=== PATIENT | male | born 1970 | race African-American/Black ===

== ENCOUNTER 2018-07-12 08:47 | Inpatient (IN) | payer MEDICAID ==
[~2018-07-12] VITALS: Ht 170.2 cm; Wt 76.5 kg
[~2018-07-12 08:47] MED LIST: AMOX-277; CARI350T22; HYDR-2595; LISI-646; PROMETHAZINE-CODEINE SYRUP; SIMV-8
[2018-07-12] MEDS ORDERED: SODIUM CHLORIDE 0.9% 1,000 ML IV ONE ×2 (09:24)
[2018-07-12] MEDS ORDERED: IOHEXOL 300 MG/ML 100ML BOTTLE IJ ONE (09:53)
[2018-07-12 10:41] LABS: Urine Bacteria FEW /hpf (None Seen); Urine Blood 2+ /uL (Negative); Urine Specific Gravity 1.002 (1.001-1.035); Urine WBC 2 /hpf (0 - 3)
[2018-07-12 10:50] LABS: Eosinophils # (auto) 0.1 uL; Monocytes # (auto) 0.9 uL; Nucleated Red Blood Cells % 0.2 %; Red Blood Cells 5.62 10^6/uL (4.5-5.90)
[2018-07-12 10:52] LABS: Basophils # (auto) 0.1 uL; Basophils % (auto) 0.4 % (0.0-2.0); Eosinophils % (auto) 0.7 % (0.0-7.0); Hematocrit 42.2 % (41.0-53.0); Hemoglobin 14.1 g/dL (13.5-17.5); Lymphocytes # (auto) 4.8 uL; Lymphocytes % (auto) 28.7 % (10.0-50.0); Mean Corpuscular Hemoglobin 25.1 pg (28.0-32.0); Mean Corpuscular Hgb Conc. 33.4 g/dL (32.0-36.0); Mean Corpuscular Volume 75.1 fL (80.0-100.0); Monocytes % (auto) 5.3 % (0.0-12.0); Neutrophils % (auto) 64.9 % (37.0-80.0); Platelet Count (auto) 421 10^3/uL (140-450); White Blood Cell 16.9 10^3/uL (4.4-10.8)
[2018-07-12 11:05] LABS: Red Cell Distribution Width 32.3 % (11.8-14.3)
[2018-07-12 11:08] LABS: Albumin 3.6 g/dL (3.4-5.0); Calcium 8.6 mg/dL (8.5-10.1)
[2018-07-12 11:14] LABS: Potassium 1.9 mmol/L (3.5-5.1)
[2018-07-12 11:15] LABS: Bilirubin, Total 1.9 mg/dL (0.2-1.0); Total Protein 8.5 g/dL (6.4-8.2)
[2018-07-12 11:21] LABS: INR 1.16 (0.9-1.15); Partial Thromboplastin Time 24.3 sec (23.78-33.04); Prothrombin Time 12.3 sec (9.27-12.13)
[2018-07-12] MEDS ORDERED: POTASSIUM CHL 20MEQ/100ML 100 ML IV SCH (11:45)
[2018-07-12] MEDS ORDERED: POTASSIUM EFFERVESENT TAB 25 MEQ PO ONE (11:45)
[2018-07-12] MEDS ORDERED: POTASSIUM CHLORIDE 20 MEQ, LIDOCAINE 1% (LOCAL ANESTH.) 2 ML in SODIUM CHL 0.9% 100 ML IV ONE (12:00)
[2018-07-12 13:22] LABS: Albumin 3.2 g/dL (3.4-5.0); BUN/Creatinine Ratio 4.3; Calcium 8.2 mg/dL (8.5-10.1)
[2018-07-12 13:26] LABS: Bilirubin, Total 1.9 mg/dL (0.2-1.0); Total Protein 7.7 g/dL (6.4-8.2)
[2018-07-12 13:41] LABS: Potassium 1.8 mmol/L (3.5-5.1)
[2018-07-12] MEDS ORDERED: LEVOFLOXACIN 500MG 100 ML IV ONE (13:45)
[2018-07-12] MEDS ORDERED: PANTOPRAZOLE 40 MG/10 ML VIAL IV ONE (13:45)
[2018-07-12] MEDS ORDERED: POTASSIUM CHL 20 Meq TABLET PO ONE ×2 (13:45→21:00)
[2018-07-12] MEDS ORDERED: NITROGLYCERIN 0.4 MG SL TAB SL PRN (13:45)
[2018-07-12 14:15] LABS: Magnesium 1.9 mg/dL (1.6-2.6)
[2018-07-12] MEDS: SOD CHL 0.45% WITH 20MEQ KCL 1,000 ML IV SCH (14:25)
[2018-07-12] MEDS: HYDROcodone-ACET 5/325MG TAB PO PRN (14:25)
[2018-07-12 14:35] LABS: Lactic Acid w/Reflex 3.2 mmol/L (0.4-2.0)
[2018-07-12] MEDS: metroNIDAZOLE 500MG/100ML 100 ML IV SCH ×2 (14:40→22:05)
[2018-07-12] MEDS: MORPHINE SULFATE 4 MG/ML SYR/VIAL IV PRN ×2 (15:32→21:18)
[2018-07-12] MEDS: ONDANSETRON HCL 4 MG/2 ML VIAL IV PRN (15:33)
[2018-07-12] MEDS: POTASSIUM CHL 20MEQ/100ML 100 ML IV SCH ×2 (21:00→23:00)
[2018-07-13] VITALS (7 sets, daily range): BP systolic 119–128; BP diastolic 73–80
[2018-07-13] MEDS: SOD CHL 0.45% WITH 20MEQ KCL 1,000 ML IV SCH ×2 (00:11→10:47)
[2018-07-13] MEDS: MORPHINE SULFATE 4 MG/ML SYR/VIAL IV PRN ×5 (01:19→20:57)
--- NOTE | 2018-07-13 02:00 | NUR ---
Telemetry admit from [facility] admitted to Telemetry unit after SBAR received. Patient oriented to Suze Guerra, primary RN, unit, room, bed, and unit policies regarding patient care and visiting hours. Patient now on continuous telemetry monitoring, tele box # [id number] and telemetry reading on arrival to unit is . Patient placed on bedside oxygen, weighed by bedscale and encouraged to call if they need something. All questions and concerns addressed, patient verbalized understanding. Note:
[2018-07-13] MEDS: metroNIDAZOLE 500MG/100ML 100 ML IV SCH ×3 (05:30→22:35)
--- NOTE | 2018-07-13 07:10 | NUR ---
OPENING SHIFT NOTE ASSUMED CARE OF PATIENT FROM TEST DESIGN ENGINEER EDILIA LUI. PATIENT IS AWAKE AND ALERT X4. PATIENT HAS NO S/S OF DISTRESS/SOB OR PAIN. INSTRUCTED PATIENT ON POC, PATIENT VERBALIZED UNDERSTANDING. BED IS IN LOWEST POSITION WITH SIDE RAILS RAISED X2, BED WHEELS LOCKED, AND CALL LIGHT WITHIN REACH. WILL CONTINUE TO MONITOR.
[2018-07-13 07:38] LABS: Eosinophils # (auto) 0.1 uL; Eosinophils % (auto) 0.6 % (0.0-7.0)
[2018-07-13 07:39] LABS: Basophils # (auto) 0 uL; Basophils % (auto) 0.2 % (0.0-2.0); Hematocrit 34.2 % (41.0-53.0); Hemoglobin 12.1 g/dL (13.5-17.5); Lymphocytes # (auto) 6.2 uL; Lymphocytes % (auto) 35.9 % (10.0-50.0); Mean Corpuscular Hemoglobin 26.6 pg (28.0-32.0); Mean Corpuscular Hgb Conc. 35.4 g/dL (32.0-36.0); Mean Corpuscular Volume 75.1 fL (80.0-100.0); Monocytes % (auto) 5.9 % (0.0-12.0); Neutrophils # (auto) 9.9 uL; Neutrophils % (auto) 57.4 % (37.0-80.0); Nucleated Red Blood Cells % 0.3 %; Platelet Count (auto) 396 10^3/uL (140-450); Red Blood Cells 4.56 10^6/uL (4.5-5.90); White Blood Cell 17.3 10^3/uL (4.4-10.8)
[2018-07-13 07:44] LABS: Albumin 2.8 g/dL (3.4-5.0); BUN/Creatinine Ratio 4.7; Bilirubin, Total 1.4 mg/dL (0.2-1.0); Calcium 7.9 mg/dL (8.5-10.1); Magnesium 1.7 mg/dL (1.6-2.6); Total Protein 6.5 g/dL (6.4-8.2)
[2018-07-13 07:46] LABS: Potassium 2.1 mmol/L (3.5-5.1)
[2018-07-13 07:47] LABS: Red Cell Distribution Width 31.3 % (11.8-14.3)
[2018-07-13] MEDS ORDERED: POTASSIUM CHL 20 Meq TABLET PO ONE (08:00)
[2018-07-13] MEDS: ONDANSETRON HCL 4 MG/2 ML VIAL IV PRN (08:23)
[2018-07-13] MEDS: ASPirin 81 mg TAB PO SCH (10:45)
[2018-07-13] MEDS: LEVOFLOXACIN 500MG 100 ML IV SCH (10:45)
[2018-07-13] MEDS: PANTOPRAZOLE 40 MG/10 ML VIAL IV SCH (10:46)
--- NOTE | 2018-07-13 11:26 | NUR ---
MD WORKMAN AT BEDSIDE. UPDATED M DON PATIENT'S STATUS, INCLUDING POTASSIUM OF 2.1, MD IS AWARE AND WILL PUT IN NEW ORDERS. WILL FOLLOW THROUGH WITH ORDERS.
[2018-07-13] MEDS ORDERED: POTASSIUM CHLORIDE 80 MEQ, LIDOCAINE 1% (LOCAL ANESTH.) 6 ML in SODIUM CHL 0.9% 500 ML IV ONE (11:30)
[2018-07-13] MEDS: SODIUM BICARBONATE 50ML VIAL 50 ML in SOD CHL 0.45% 1,000 ML IV SCH (12:20)
[2018-07-13 12:28] LABS: Albumin 2.7 g/dL (3.4-5.0); Calcium 7.9 mg/dL (8.5-10.1)
[2018-07-13 12:31] LABS: BUN/Creatinine Ratio 4.3; Bilirubin, Total 1.5 mg/dL (0.2-1.0); Total Protein 6.4 g/dL (6.4-8.2)
[2018-07-13 12:39] LABS: Potassium 2.1 mmol/L (3.5-5.1)
[2018-07-13] MEDS: Ensure Enlive Strawberry 8oz Bottle PO SCH ×2 (13:51→17:44)
[2018-07-13] MEDS: MAGNESIUM SULFATE 1GM/100ML 100 ML IV SCH ×2 (14:17→15:54)
--- NOTE | 2018-07-13 18:48 | NUR ---
STOOL SAMPLE SENT TO LAB
--- NOTE | 2018-07-13 19:20 | NUR ---
CLOSING SHIFT NOTE ENDORSED CARE TO POLITICAL SCIENCE RESEARCH ASSISTANT RN ISRRAEL. PATIENT HAS NO S/S OF DISTRESS/SOB OR PAIN AT THIS TIME.
--- NOTE | 2018-07-13 20:00 | NUR ---
IV removal IV in the L AC is leaking .IV dc'd with sterile technique, catheter fully intact. Pressure dressing applied to site. Patient tolerated procedure well.
--- NOTE | 2018-07-13 20:30 | NUR ---
IV insertion 2nd IV access obtained, via clean sterile technique by inserting 22 gauge catheter at L forearm after 1 attempt(s). IV secured properly. No trauma to site. Patient tolerated well.
[2018-07-14] MEDS ORDERED: diphenhdrAMINE HCL 25 MG CAP PO ONE (00:30)
[2018-07-14] MEDS: MORPHINE SULFATE 4 MG/ML SYR/VIAL IV PRN ×5 (01:21→19:07)
[2018-07-14] MEDS: SODIUM BICARBONATE 50ML VIAL 50 ML in SOD CHL 0.45% 1,000 ML IV SCH ×2 (01:46→09:18)
--- NOTE | 2018-07-14 04:00 | NUR ---
monitor and storage bin tender tech called that patient's HR is 140. At this time patient up to the bathroom and had BM. Patient not c/o chest discomfort . Patient ambulated back to his bed with no discomfort presented.
[2018-07-14 05:30] VITALS: BP 125/72
[2018-07-14] MEDS: metroNIDAZOLE 500MG/100ML 100 ML IV SCH (05:36)
[2018-07-14 05:53] VITALS: BP 125/95
[2018-07-14 06:46] LABS: Eosinophils # (auto) 0.1 uL; Hemoglobin 11.1 g/dL (13.5-17.5); Neutrophils # (auto) 8.6 uL
[2018-07-14 06:48] LABS: Basophils # (auto) 0.1 uL; Basophils % (auto) 0.3 % (0.0-2.0); Eosinophils % (auto) 0.5 % (0.0-7.0); Hematocrit 30.8 % (41.0-53.0); Lymphocytes # (auto) 5.4 uL; Lymphocytes % (auto) 35.8 % (10.0-50.0); Mean Corpuscular Hemoglobin 27.3 pg (28.0-32.0); Mean Corpuscular Hgb Conc. 35.9 g/dL (32.0-36.0); Mean Corpuscular Volume 76.1 fL (80.0-100.0); Monocytes % (auto) 6.8 % (0.0-12.0); Neutrophils % (auto) 56.6 % (37.0-80.0); Nucleated Red Blood Cells % 0.3 %; Platelet Count (auto) 424 10^3/uL (140-450); Red Blood Cells 4.06 10^6/uL (4.5-5.90); White Blood Cell 15.2 10^3/uL (4.4-10.8)
[2018-07-14 07:13] LABS: Albumin 2.7 g/dL (3.4-5.0); BUN/Creatinine Ratio 3.9; Calcium 7.3 mg/dL (8.5-10.1)
[2018-07-14 07:14] LABS: Red Cell Distribution Width 31.7 % (11.8-14.3)
[2018-07-14 07:27] LABS: Bilirubin, Total 0.9 mg/dL (0.2-1.0); Total Protein 6.6 g/dL (6.4-8.2)
--- NOTE | 2018-07-14 07:30 | NUR ---
OPENING NOTE The patient is received alert and oriented times four with no SOB or s/s of distress at this time. The patient is resting in bed in the lowest position with call light within reach, will continue to monitor and POC.
[2018-07-14 07:44] LABS: Potassium 2.3 mmol/L (3.5-5.1)
--- NOTE | 2018-07-14 08:35 | NUR ---
CRITICAL LAB Lab calls and states that the patient's potassium is 2.3 and the on-call hospitalist is paged. The on-call hospitalist calls back and is updated on the patient's status. The hospitalist places orders via telephone with read back.
[2018-07-14] MEDS ORDERED: POTASSIUM CHL 20 Meq TABLET PO ONE ×2 (09:00→11:30)
[2018-07-14] MEDS ORDERED: POTASSIUM CHLORIDE 40 MEQ, LIDOCAINE 1% (LOCAL ANESTH.) 4 ML in SODIUM CHL 0.9% 100 ML IV ONE (09:00)
--- NOTE | 2018-07-14 09:00 | NUR ---
IV removal IV DC'd with sterile technique, catheter fully intact. Pressure dressing applied to site. Patient tolerated procedure well.
[2018-07-14] MEDS: Ensure Enlive Strawberry 8oz Bottle PO SCH ×3 (09:18→18:29)
[2018-07-14 09:22] VITALS: BP 136/81
[2018-07-14] MEDS: LEVOFLOXACIN 500MG 100 ML IV SCH (09:38)
[2018-07-14] MEDS: ASPirin 81 mg TAB PO SCH (09:39)
[2018-07-14] MEDS: PANTOPRAZOLE 40 MG/10 ML VIAL IV SCH (09:39)
--- NOTE | 2018-07-14 11:15 | NUR ---
HOSPITALIST BEDSIDE Dr. Knox is bedside and updates the patient on the POC.
[2018-07-14] MEDS: D5W/SOD CHL 0.45%/KCL 40MEQ 1,000 ML IV SCH (11:30)
[2018-07-14] MEDS: diphenhdrAMINE HCL 50 MG/1 ML VL IV PRN ×2 (13:00→20:20)
[2018-07-14 13:12] VITALS: BP 115/74
--- NOTE | 2018-07-14 13:30 | NUR ---
IV insertion IV access obtained, via clean sterile technique by inserting 20 gauge catheter at the right AC after one attempt(s). IV secured properly. No trauma to site. Patient tolerated procedure well.
[2018-07-14] MEDS: metroNIDAZOLE 500 MG TAB PO SCH ×2 (14:15→21:55)
--- NOTE | 2018-07-14 16:30 | NUR ---
Rounds Patient awake and alert. No S/S of distress/SOB or pain. Will continue to monitor changes q1hr and PRN.
[2018-07-14 17:36] VITALS: BP 127/78
--- NOTE | 2018-07-14 19:50 | NUR ---
OPENING NOTES RECEIVED REPORT FROM DAY SHIFT NURSE. PT IS AWAKE AND ALERT X 4 WITH NO S/S OF DISTRESS BUT HAS PAIN 8/10. BED IS IN LOWEST POSITION WITH BRAKES LOCKED AND SIDE RAILS UP X 2. CALL LIGHT IS WITH IN REACH. ADDRESSED POC WITH PT. WILL MONITOR Q 1 HR.
[2018-07-14] MEDS: HYDROcodone-ACET 5/325MG TAB PO PRN (20:26)
[2018-07-14 20:44] VITALS: BP 125/70
[2018-07-15] MEDS: MORPHINE SULFATE 4 MG/ML SYR/VIAL IV PRN ×5 (00:38→22:18)
--- NOTE | 2018-07-15 01:20 | NUR ---
IV FLUIDS D5W .45 NACL 40MEQ KCL NOT FINISHED INFUSING. WILL DELAY SCHEDULED D5W .45 NACL 40MEQ KCL AT 0050 TILL CURRENT D5W .45NACL 40 MEQ KCL IS COMPLETED.
[2018-07-15] MEDS: diphenhdrAMINE HCL 50 MG/1 ML VL IV PRN ×3 (03:43→17:50)
[2018-07-15 05:00] VITALS: BP 128/69
[2018-07-15 05:55] LABS: Basophils # (auto) 0.1 uL; Basophils % (auto) 0.5 % (0.0-2.0); Eosinophils # (auto) 0.1 uL; Eosinophils % (auto) 0.9 % (0.0-7.0); Lymphocytes # (auto) 6.4 uL; Mean Corpuscular Hemoglobin 25.1 pg (28.0-32.0); Mean Corpuscular Hgb Conc. 32.5 g/dL (32.0-36.0); Mean Corpuscular Volume 77.4 fL (80.0-100.0); Monocytes % (auto) 6.3 % (0.0-12.0); Neutrophils # (auto) 7.6 uL; Neutrophils % (auto) 50.3 % (37.0-80.0); Nucleated Red Blood Cells % 0.3 %; Platelet Count (auto) 323 10^3/uL (140-450); Red Blood Cells 4.39 10^6/uL (4.5-5.90); White Blood Cell 15.1 10^3/uL (4.4-10.8)
[2018-07-15 06:03] LABS: Red Cell Distribution Width 33.1 % (11.8-14.3)
[2018-07-15 06:04] LABS: BUN/Creatinine Ratio 2.9; Calcium 7.4 mg/dL (8.5-10.1)
[2018-07-15] MEDS: D5W/SOD CHL 0.45%/KCL 40MEQ 1,000 ML IV SCH ×2 (06:06→14:10)
[2018-07-15] MEDS: metroNIDAZOLE 500 MG TAB PO SCH ×3 (06:07→22:17)
--- NOTE | 2018-07-15 06:46 | NUR ---
BM PT HAS HAD 3 LOOSE BOWEL MOVEMENTS DURING 07-14-18 [id number] 07-15-18
[2018-07-15 07:17] LABS: Potassium 2.9 mmol/L (3.5-5.1)
--- NOTE | 2018-07-15 07:35 | NUR ---
Opening Shift Note Assumed care of patient, awake and alert. No S/S of distress/SOB or pain. Instructed on POC and to call for assist PRN. Bed at lowest position and call light within reach. Will continue to monitor for changes Q1hr and PRN.
[2018-07-15 08:00] VITALS: BP 128/71
--- NOTE | 2018-07-15 08:00 | NUR ---
Critical lab potassium 2.9. Paged hospitalist, awaiting call back.
--- NOTE | 2018-07-15 08:25 | NUR ---
Patient requested another breakfast tray and Benadryl. Will order additional tray and medicate per MD orders.
[2018-07-15 09:00] VITALS: BP 128/71
--- NOTE | 2018-07-15 09:10 | NUR ---
IV removal Patient c/o pain at Right IV site. Patient requests IV catheter to be removed. IV DC'd with clean sterile technique, catheter fully intact. Pressure dressing applied to site. Patient tolerated well.
[2018-07-15] MEDS: ASPirin 81 mg TAB PO SCH (10:08)
[2018-07-15] MEDS: PANTOPRAZOLE 40 MG TAB PO SCH (10:08)
[2018-07-15] MEDS: LEVOFLOXACIN 500MG 100 ML IV SCH (10:08)
--- NOTE | 2018-07-15 11:45 | NUR ---
Paged for Hospitalist again, regarding critical lab. Awaiting call back.
[2018-07-15] MEDS ORDERED: POTASSIUM CHL 20 Meq TABLET PO ONE (12:00)
[2018-07-15] MEDS ORDERED: POTASSIUM CHLORIDE 40 MEQ, LIDOCAINE 1% (LOCAL ANESTH.) 4 ML in SODIUM CHL 0.9% 100 ML IV ONE (12:00)
[2018-07-15] MEDS: Ensure Enlive Strawberry 8oz Bottle PO SCH ×3 (12:00→17:51)
--- NOTE | 2018-07-15 12:00 | NUR ---
MD orders received regarding critical lab.
--- NOTE | 2018-07-15 12:15 | NUR ---
IV removal Paient c/o pain in Left IV site, swelling and redness present. IV DC'd with clean sterile technique, catheter fully intact. Pressure dressing applied to site. Patient tolerated well.
--- NOTE | 2018-07-15 12:40 | NUR ---
Attempted to gain IV access. Not successful.
[2018-07-15 13:00] VITALS: BP 130/70
--- NOTE | 2018-07-15 13:00 | NUR ---
Attempted to gain IV access , no success. Charge nurse aware.
[2018-07-15] MEDS ORDERED: MORPHINE SULFATE 4 MG/ML SYR/VIAL IV PRN (14:45)
[2018-07-15] MEDS ORDERED: HYDROcodone-ACET 5/325MG TAB PO PRN (14:45)
--- NOTE | 2018-07-15 16:00 | NUR ---
IV insertion IV access obtained, via clean sterile technique by inserting gauge catheter at 20 gauge after 1attempt, By Janet YEBOAH. IV secured properly. No trauma to site. Patient tolerated well.
[2018-07-15] MEDS: CHOLESTYRAMINE 4 GM POWDER PO SCH ×2 (17:50→22:10)
--- NOTE | 2018-07-15 19:00 | NUR ---
end of shift note : Patient resting comfortably, no s/s of distress/sob noted /stated. Care endorsed to NOC RN.
--- NOTE | 2018-07-15 19:50 | NUR ---
OPENING NOTES RECEIVED REPORT FROM DAY SHIFT NURSE. PT IS AWAKE AND ALERT X 4 WITH NO S/S OF DISTRESS BUT HAS PAIN 6/10. BED IS IN LOWEST POSITION WITH BRAKES LOCKED AND SIDE RAILS UP X 2. CALL LIGHT IS WITH IN REACH. ADDRESSED POC WITH PT. WILL MONITOR Q 1 HR.
[2018-07-15 22:00] VITALS: BP 101/62
[2018-07-15] MEDS: DIPHENOXYLATE W/ATROPINE 2.5 MG TAB PO PRN (22:17)
[2018-07-16] MEDS: diphenhdrAMINE HCL 50 MG/1 ML VL IV PRN ×4 (01:00→22:10)
[2018-07-16] MEDS: DIPHENOXYLATE W/ATROPINE 2.5 MG TAB PO PRN ×2 (01:10→17:58)
[2018-07-16] MEDS: MORPHINE SULFATE 4 MG/ML SYR/VIAL IV PRN ×5 (03:38→22:11)
[2018-07-16] MEDS: D5W/SOD CHL 0.45%/KCL 40MEQ 1,000 ML IV SCH ×3 (04:25→23:32)
[2018-07-16 05:00] VITALS: BP 115/72
[2018-07-16 05:28] LABS: Eosinophils # (auto) 0.1 uL; Hemoglobin 11.4 g/dL (13.5-17.5); Monocytes # (auto) 0.9 uL; Nucleated Red Blood Cells % 0.3 %
[2018-07-16 05:29] LABS: Basophils # (auto) 0.2 uL; Basophils % (auto) 1.1 % (0.0-2.0); Eosinophils % (auto) 0.7 % (0.0-7.0); Hematocrit 34.2 % (41.0-53.0); Lymphocytes # (auto) 7.2 uL; Lymphocytes % (auto) 45.1 % (10.0-50.0); Mean Corpuscular Hemoglobin 26.5 pg (28.0-32.0); Mean Corpuscular Hgb Conc. 33.3 g/dL (32.0-36.0); Mean Corpuscular Volume 79.5 fL (80.0-100.0); Monocytes % (auto) 5.5 % (0.0-12.0); Neutrophils # (auto) 7.6 uL; Neutrophils % (auto) 47.6 % (37.0-80.0)
[2018-07-16 05:46] LABS: BUN/Creatinine Ratio 1.9; Calcium 7.9 mg/dL (8.5-10.1); Magnesium 2.1 mg/dL (1.6-2.6); Potassium 3.3 mmol/L (3.5-5.1)
[2018-07-16 05:59] LABS: Red Cell Distribution Width 27.1 % (11.8-14.3)
[2018-07-16 06:00] LABS: Platelet Count (auto) 292 10^3/uL (140-450)
[2018-07-16] MEDS: metroNIDAZOLE 500 MG TAB PO SCH ×3 (06:10→21:19)
--- NOTE | 2018-07-16 07:20 | NUR ---
CLOSING NOTES ENDORSED CARE TO DAY SHIFT NURSEZOLTAN
--- NOTE | 2018-07-16 07:30 | NUR ---
opening shift note: Assumed care of patient, awake and alert. No S/S of distress/SOB or pain. Instructed on POC and to call for assist PRN, will continue to monitor for changes Q1hr and PRN.
[2018-07-16 08:00] VITALS: BP 128/81
[2018-07-16] MEDS: Ensure Enlive Strawberry 8oz Bottle PO SCH ×3 (08:00→17:42)
[2018-07-16] MEDS: LEVOFLOXACIN 500MG 100 ML IV SCH (08:51)
[2018-07-16] MEDS: ASPirin 81 mg TAB PO SCH (08:52)
[2018-07-16] MEDS: PANTOPRAZOLE 40 MG TAB PO SCH (08:52)
[2018-07-16] MEDS: CHOLESTYRAMINE 4 GM POWDER PO SCH (11:00)
--- NOTE | 2018-07-16 12:48 | NUR ---
Nutrition Assessment Notes please see attached link for complete assessment Est. Needs based on BW (75 kg): 6075-0559 kcal (23-25 kcal/kgBW), 75-82 gms pro (1.0-1.1 gms/kgBW). Will continue to monitor pertinent labs and reassess nutrient need prn Addendum: 07/16/18 at [address] Amended: Links added.
[2018-07-16] MEDS ORDERED: POTASSIUM CHL 20 Meq TABLET PO ONE ×2 (16:00)
[2018-07-16 17:00] VITALS: BP 115/77
--- NOTE | 2018-07-16 18:45 | NUR ---
End of shift note: Patient is comfortably sitting up in bed, no s/s of distress noted/stated.No c/o pain. Will endorse care to NOC RN.
[2018-07-16] MEDS: ONDANSETRON HCL 4 MG/2 ML VIAL IV PRN (19:56)
--- NOTE | 2018-07-16 20:00 | NUR ---
Opening Shift Note Assumed care of patient, awakened and alert. No S/S of distress/SOB or pain. Instructed on POC and to call for assist PRN, will continue to monitor for changes Q1hr and PRN.
[2018-07-16 22:00] VITALS: BP 122/78
[2018-07-17] MEDS: MORPHINE SULFATE 4 MG/ML SYR/VIAL IV PRN ×5 (02:15→22:16)
[2018-07-17] MEDS: ONDANSETRON HCL 4 MG/2 ML VIAL IV PRN ×2 (02:15→12:05)
[2018-07-17] MEDS: diphenhdrAMINE HCL 50 MG/1 ML VL IV PRN ×3 (04:17→22:15)
[2018-07-17 05:00] VITALS: BP 119/71
[2018-07-17] MEDS: metroNIDAZOLE 500 MG TAB PO SCH ×3 (05:31→21:15)
[2018-07-17 05:35] LABS: Eosinophils # (auto) 0.1 uL; Hemoglobin 11.2 g/dL (13.5-17.5); Lymphocytes # (auto) 4.3 uL; Lymphocytes % (auto) 22.6 % (10.0-50.0); Monocytes # (auto) 1.3 uL; Neutrophils # (auto) 13.4 uL; Nucleated Red Blood Cells % 0.2 %; White Blood Cell 19.2 10^3/uL (4.4-10.8)
[2018-07-17 05:39] LABS: Basophils # (auto) 0 uL; Basophils % (auto) 0.2 % (0.0-2.0); Eosinophils % (auto) 0.7 % (0.0-7.0); Hematocrit 34.5 % (41.0-53.0); Mean Corpuscular Hemoglobin 24.8 pg (28.0-32.0); Mean Corpuscular Hgb Conc. 32.4 g/dL (32.0-36.0); Mean Corpuscular Volume 76.5 fL (80.0-100.0); Monocytes % (auto) 6.8 % (0.0-12.0); Neutrophils % (auto) 69.7 % (37.0-80.0); Platelet Count (auto) 294 10^3/uL (140-450); Red Blood Cells 4.51 10^6/uL (4.5-5.90)
[2018-07-17 05:49] LABS: Potassium 3.6 mmol/L (3.5-5.1)
[2018-07-17 05:53] LABS: Albumin 2.7 g/dL (3.4-5.0); BUN/Creatinine Ratio 2.9; Bilirubin, Total 0.6 mg/dL (0.2-1.0); Calcium 7.8 mg/dL (8.5-10.1); Total Protein 6.5 g/dL (6.4-8.2)
[2018-07-17 06:10] LABS: Red Cell Distribution Width 34.7 % (11.8-14.3)
--- NOTE | 2018-07-17 07:45 | NUR ---
Report given to Kurt Guerra to assume care, patient is not in distress.
--- NOTE | 2018-07-17 08:00 | NUR ---
Opening Shift Note Assumed care of patient, awake and alert. No S/S of distress/SOB or pain. Instructed on POC and to call for assist PRN, will continue to monitor for changes Q1hr and PRN.
[2018-07-17 09:00] VITALS: BP 132/77
[2018-07-17] MEDS ORDERED: LOPERAMIDE HCL 2 MG CAP PO SCH (10:00)
[2018-07-17] MEDS: ASPirin 81 mg TAB PO SCH (10:02)
[2018-07-17] MEDS: LEVOFLOXACIN 500MG 100 ML IV SCH (10:02)
[2018-07-17] MEDS: PANTOPRAZOLE 40 MG TAB PO SCH (10:02)
[2018-07-17] MEDS: Ensure Enlive Strawberry 8oz Bottle PO SCH ×3 (10:03→18:06)
[2018-07-17] MEDS: D5W/SOD CHL 0.45%/KCL 40MEQ 1,000 ML IV SCH (10:51)
[2018-07-17 13:00] VITALS: BP 117/67
[2018-07-17 16:24] VITALS: BP 102/61
[2018-07-17] MEDS ORDERED: SIMETHICONE 80 MG CHEWABLE TABLET PO PRN (17:00)
[2018-07-17] MEDS ORDERED: SIMETHICONE 80 MG CHEWABLE TABLET PO SCH (18:00)
--- NOTE | 2018-07-17 20:01 | NUR ---
Opening Shift Note Assumed care of patient, awake and alert. No S/S of distress/SOB or pain. Instructed on POC and to call for assist PRN, will continue to monitor for changes Q1hr and PRN.Patient does not want to be disturbed.
[2018-07-17 22:00] VITALS: BP 98/54
[2018-07-18] MEDS: MORPHINE SULFATE 4 MG/ML SYR/VIAL IV PRN ×5 (03:11→20:53)
[2018-07-18] MEDS: diphenhdrAMINE HCL 50 MG/1 ML VL IV PRN ×4 (04:02→22:14)
[2018-07-18 05:00] VITALS: BP 103/66
[2018-07-18 05:54] LABS: Basophils # (auto) 0 uL; Basophils % (auto) 0.3 % (0.0-2.0); Eosinophils # (auto) 0.2 uL; Eosinophils % (auto) 0.9 % (0.0-7.0); Hematocrit 32.4 % (41.0-53.0); Hemoglobin 10.8 g/dL (13.5-17.5); Lymphocytes # (auto) 5.7 uL; Lymphocytes % (auto) 32.6 % (10.0-50.0); Mean Corpuscular Hemoglobin 25.2 pg (28.0-32.0); Mean Corpuscular Hgb Conc. 33.4 g/dL (32.0-36.0); Mean Corpuscular Volume 75.6 fL (80.0-100.0); Monocytes # (auto) 1.3 uL; Monocytes % (auto) 7.5 % (0.0-12.0); Neutrophils # (auto) 10.2 uL; Neutrophils % (auto) 58.7 % (37.0-80.0); Nucleated Red Blood Cells % 0.4 %; Platelet Count (auto) 321 10^3/uL (140-450); Red Blood Cells 4.28 10^6/uL (4.5-5.90); White Blood Cell 17.4 10^3/uL (4.4-10.8)
[2018-07-18 05:56] LABS: Red Cell Distribution Width 34.9 % (11.8-14.3)
[2018-07-18] MEDS: metroNIDAZOLE 500 MG TAB PO SCH ×3 (06:03→21:17)
[2018-07-18 06:09] LABS: BUN/Creatinine Ratio 5.8; Calcium 8.1 mg/dL (8.5-10.1); Potassium 3.4 mmol/L (3.5-5.1)
--- NOTE | 2018-07-18 07:25 | NUR ---
Report given to Kurt Perdue to assume care.
--- NOTE | 2018-07-18 07:40 | NUR ---
Opening Shift Note Assumed care of patient, awake, alert, and oriented x4. Patient has 8/10 complaints of abdominal pain at this time. Patient's abdomen is distended and firm. Patient has IV in left wrist 22g running D5W 0.45% NS 40mEq KCl at 75mL/hr, patient tolerating well. Patient is on room air with no S/S of distress/SOB. Patient's skin is intact. Instructed on POC and to call for assist PRN, will continue to monitor for changes Q1hr and PRN. Bed in lowest locked position, call light within reach.
[2018-07-18 08:00] VITALS: BP 111/68
[2018-07-18] MEDS: Ensure Enlive Strawberry 8oz Bottle PO SCH ×3 (08:15→18:15)
[2018-07-18] MEDS: D5W/SOD CHL 0.45%/KCL 40MEQ 1,000 ML IV SCH ×2 (09:16→22:10)
[2018-07-18] MEDS: LEVOFLOXACIN 500MG 100 ML IV SCH (09:16)
[2018-07-18] MEDS: ASPirin 81 mg TAB PO SCH (09:16)
[2018-07-18] MEDS: PANTOPRAZOLE 40 MG TAB PO SCH (09:16)
[2018-07-18] MEDS ORDERED: LOPERAMIDE HCL 2 MG CAP PO SCH (10:00)
[2018-07-18] MEDS ORDERED: DIPHENOXYLATE W/ATROPINE 2.5 MG TAB PO PRN (10:30)
--- NOTE | 2018-07-18 10:34 | NUR ---
AT BEDSIDE DR. VILLAR AT BEDSIDE DISCUSSING POC WITH PATIENT. PATIENT COMPLAINING OF SEVERE 9/10 ABDOMINAL PAIN. LEFT PATIENT ROOM WITH MD AND PATIENT HAD PIZZA DELIVERED TO BEDSIDE. MD AWARE.
[2018-07-18 11:05] LABS: Urine Bacteria NONE SEEN /hpf (None Seen); Urine Blood Negative /uL (Negative); Urine Specific Gravity 1.006 (1.001-1.035); Urine WBC 2 /hpf (0 - 3)
--- NOTE | 2018-07-18 12:07 | NUR ---
AMBULATING PATIENT AMBULATING AROUND UNIT WITH NO S/S OF DISTRESS.
[2018-07-18 12:51] VITALS: BP 117/73
[2018-07-18] MEDS ORDERED: HYDROcodone-ACET 5/325MG TAB PO PRN (15:30)
[2018-07-18] MEDS ORDERED: POTASSIUM CHL 20MEQ/100ML 100 ML IV ONE (15:30)
[2018-07-18 17:10] VITALS: BP 137/76
--- NOTE | 2018-07-18 18:43 | NUR ---
END OF SHIFT PATIENT RESTING IN BED. NO S/S OF DISTRESS. INSTRUCTED PATIENT TO CALL PRN. BED IN LOWEST LOCKED POSITION, CALL LIGHT WITHIN REACH. ENDORSED CARE TO EDILIA OLVERA.
--- NOTE | 2018-07-18 20:30 | NUR ---
IV insertion IV access obtained, via clean sterile technique by inserting 22 gauge catheter at right forearm after attempt by Kurt Vizcarra. IV secured properly. No trauma to site. Patient tolerated well.
[2018-07-18 22:00] VITALS: BP 107/63
[2018-07-19] MEDS: MORPHINE SULFATE 4 MG/ML SYR/VIAL IV PRN ×5 (02:37→22:50)
[2018-07-19] MEDS: diphenhdrAMINE HCL 50 MG/1 ML VL IV PRN ×3 (04:36→18:39)
[2018-07-19 05:00] VITALS: BP 105/59
[2018-07-19 05:35] LABS: Basophils # (auto) 0.1 uL; Eosinophils # (auto) 0.1 uL; Hemoglobin 11.5 g/dL (13.5-17.5); Neutrophils # (auto) 9.7 uL; Nucleated Red Blood Cells % 0.3 %
[2018-07-19 05:38] LABS: Basophils % (auto) 0.7 % (0.0-2.0); Eosinophils % (auto) 0.7 % (0.0-7.0); Hematocrit 33.4 % (41.0-53.0); Lymphocytes # (auto) 6.3 uL; Lymphocytes % (auto) 36.4 % (10.0-50.0); Mean Corpuscular Hemoglobin 26.8 pg (28.0-32.0); Mean Corpuscular Hgb Conc. 34.5 g/dL (32.0-36.0); Mean Corpuscular Volume 77.6 fL (80.0-100.0); Neutrophils % (auto) 56.2 % (37.0-80.0); Platelet Count (auto) 354 10^3/uL (140-450); White Blood Cell 17.2 10^3/uL (4.4-10.8)
[2018-07-19 05:48] LABS: Red Cell Distribution Width 33.4 % (11.8-14.3)
[2018-07-19] MEDS: metroNIDAZOLE 500 MG TAB PO SCH ×3 (05:51→21:38)
[2018-07-19 06:12] LABS: BUN/Creatinine Ratio 3.7; Calcium 8.4 mg/dL (8.5-10.1); Potassium 3.5 mmol/L (3.5-5.1)
--- NOTE | 2018-07-19 07:15 | NUR ---
Report given to Kurt Terrazas to assume care.
--- NOTE | 2018-07-19 07:40 | NUR ---
Opening Shift Note Assumed care of patient, awake, alert, and oriented x4. Patient has 8/10 complaints of abdominal pain at this time. Patient's abdomen is soft. Patient has IV in right forearm 20g running D5W 0.45% NS 40mEq KCl at 75mL/hr, patient tolerating well. Patient is on room air with no S/S of distress/SOB. Patient's skin is intact. Patient has scar to medial abdomen. Instructed on POC and to call for assist PRN, will continue to monitor for changes Q1hr and PRN. Bed in lowest locked position, call light within reach.
[2018-07-19] MEDS: Ensure Enlive Strawberry 8oz Bottle PO SCH ×3 (07:56→18:00)
[2018-07-19 08:00] VITALS: BP 108/61
[2018-07-19 08:43] VITALS: BP 108/61
[2018-07-19] MEDS: ASPirin 81 mg TAB PO SCH (09:14)
[2018-07-19] MEDS: LEVOFLOXACIN 500MG 100 ML IV SCH (09:14)
[2018-07-19] MEDS: PANTOPRAZOLE 40 MG TAB PO SCH (09:14)
[2018-07-19] MEDS: D5W/SOD CHL 0.45%/KCL 40MEQ 1,000 ML IV SCH ×2 (10:54→23:04)
[2018-07-19 13:00] VITALS: BP 110/61
--- NOTE | 2018-07-19 13:48 | NUR ---
TRANSFER OF CARE REPORT GIVEN TO EDILIA CUEVAS FOR CONTINUATION OF CARE.
[2018-07-19] MEDS ORDERED: GASTROGRAFIN 120 ML SOL ONE (16:29)
--- NOTE | 2018-07-19 17:00 | NUR ---
PT NOT IN ROOM FOR 1700 VITALS
[2018-07-19 18:08] LABS: Hepatitis A Ab IgM Negative; Hepatitis B Core IgM Negative
[2018-07-19 18:09] LABS: Hepatitis B Surface Antigen Negative (Negative); Hepatitis C Antibody Negative (Negative)
--- NOTE | 2018-07-19 19:00 | NUR ---
Closing Note Patient is resting in bed, pain medication and benadryl has just been given as ordered. Call light within reach and bed in lowest position. Care endorsed to night RN.
[2018-07-19 22:00] VITALS: BP 105/61
[2018-07-20] MEDS: diphenhdrAMINE HCL 50 MG/1 ML VL IV PRN ×2 (00:40→06:54)
[2018-07-20] MEDS: MORPHINE SULFATE 4 MG/ML SYR/VIAL IV PRN ×3 (03:15→12:49)
[2018-07-20 04:52] VITALS: BP 101/61
[2018-07-20 06:47] LABS: Basophils # (auto) 0 uL; Eosinophils # (auto) 0.1 uL; Neutrophils # (auto) 7.7 uL
[2018-07-20 06:49] LABS: Basophils % (auto) 0.2 % (0.0-2.0); Eosinophils % (auto) 0.7 % (0.0-7.0); Hematocrit 34.1 % (41.0-53.0); Lymphocytes # (auto) 4.9 uL; Lymphocytes % (auto) 34.8 % (10.0-50.0); Mean Corpuscular Hemoglobin 24.8 pg (28.0-32.0); Mean Corpuscular Hgb Conc. 32.3 g/dL (32.0-36.0); Monocytes # (auto) 1.3 uL; Monocytes % (auto) 9.3 % (0.0-12.0); Nucleated Red Blood Cells % 0.3 %; Platelet Count (auto) 474 10^3/uL (140-450); Red Blood Cells 4.42 10^6/uL (4.5-5.90)
[2018-07-20] MEDS: metroNIDAZOLE 500 MG TAB PO SCH (06:54)
[2018-07-20 06:55] LABS: BUN/Creatinine Ratio 1.9; Calcium 8.4 mg/dL (8.5-10.1); Magnesium 1.9 mg/dL (1.6-2.6); Potassium 3.5 mmol/L (3.5-5.1)
--- NOTE | 2018-07-20 07:12 | NUR ---
SIGN OFF PATIENT RESTING IN BED . NO S/S OF DISTRESS OR SOB. PAIN MEDS ADMINISTERED FOR 8/10 CHRONIC PAIN JUST BEFORE SHIFT CHANGE. BED IN LOWEST LOCKED POSITION AND CALL DUFFY W/IN REACH. ENDORSING CARE TO DAY RN.
[2018-07-20 07:13] LABS: Red Cell Distribution Width 34.9 % (11.8-14.3)
[2018-07-20] MEDS: Ensure Enlive Strawberry 8oz Bottle PO SCH ×2 (08:00→12:49)
[2018-07-20 08:11] VITALS: BP 104/54
--- NOTE | 2018-07-20 08:25 | NUR ---
Opening Shift Note Assumed care of patient, awake and alert and oriented. No S/S of distress/SOB or pain. Instructed on POC and to call for assist PRN, will continue to monitor for changes. Patient initially refused to have assessment done, state " I feel like a guinea pig." Once explained reason for patient allowed me to assess yet unhappy about it.
[2018-07-20] MEDS: PANTOPRAZOLE 40 MG TAB PO SCH (09:54)
[2018-07-20] MEDS: LEVOFLOXACIN 500MG 100 ML IV SCH (09:54)
[2018-07-20] MEDS: ASPirin 81 mg TAB PO SCH (09:54)
--- NOTE | 2018-07-20 10:06 | NUR ---
Patient care and report handed off to Ave YEBOAH.
--- NOTE | 2018-07-20 10:15 | NUR ---
ASSUMED CARE FROM DAYSNMFT NURSE DAVIS. PATIENT IS LAYING ON BED. NO SIGNS OF SOB/DISTRESS NOTED. BED SET TO LOWEST POSITION/LOCKED. CALL LIGHT WITHIN REACH. WILL CONTINUE TO MONITOR.
--- NOTE | 2018-07-20 10:30 | NUR ---
Spoke with dietary and made aware patient requesting to speak with dietary.
[2018-07-20 13:00] VITALS: BP 100/65
--- NOTE | 2018-07-20 14:05 | NUR ---
Discharge instructions given as ordered. Encourage to follow up with PMD as instructed. All questions and concerns addressed. Patient verbalized understanding. No home medications held in Pharmacy and no vaccines given. IV removed with catheter intact, pressure dressing applied.
[2018-07-20] MEDS ORDERED: DIPHENOXYLATE W/ATROPINE 2.5 MG TAB PO PRN (14:15)
--- NOTE | 2018-07-20 14:20 | NUR ---
Patient taken to vehicle via wheelchair with all personal belongings, accompanied by staff and family member. No distress noted at time of departure.
== END 2018-07-20 14:20 | disposition home or self-care (01) | DRG 720 ==
LOC: EDBD 08:47 → ER 08:51 → TELE 13:41 → TELE-WESTW 07-13 01:51 → WEST WING 07-19 11:04
PROVIDERS: ADMIT Internal Medicine; ATTEND Internal Medicine
DX: A41.9 Sepsis, unspecified organism (principal); N17.0 Acute kidney failure with tubular necrosis; E87.6 Hypokalemia; I25.10 Atherosclerotic heart disease of native coronary artery without angina pectoris; K52.9 Noninfective gastroenteritis and colitis, unspecified; E87.0 Hyperosmolality and hypernatremia; I10 Essential (primary) hypertension; D72.820 Lymphocytosis (symptomatic); E78.5 Hyperlipidemia, unspecified; Z82.49 Family history of ischemic heart disease and other diseases of the circulatory system; Z83.3 Family history of diabetes mellitus; Z90.49 Acquired absence of other specified parts of digestive tract; Z79.899 Other long term (current) drug therapy; K56.600 Partial intestinal obstruction, unspecified as to cause
CPT/HCPCS: 36415; 71045; 74021; 74177; 74250; 76705; 80048; 80053; 80074; 81001; 83605; 83615; 83690; 83735; 84132; 84484; 85025; 85610; 85730; 87040; 87045; 87493; 87899; 96361; 96365; 96366; A6257; C9113; G0378; J1956; J2001; J2405; J3480; J3490